=== PATIENT | male | born 1985 | race Caucasian/White ===

== ENCOUNTER 2021-12-27 09:17 | Emergency (ER) | payer OTHER ==
[2021-12-27 09:25] VITALS: BP 133/89
[2021-12-27 09:49] LABS: RAPID STREP SCREEN Negative (Negative)
--- NOTE | 2021-12-27 10:06 | ED Physician Documentation ---
PD HPI URI - Stated complaint Stated Complaint: THROAT PX - Chief complaint Chief Complaint: Heent - History obtained from History obtained from: Patient - History of Present Illness Timing - onset: How many days ago (04 01/2) Timing duration: Days (1-2) Timing details: Abrupt onset, Still present Associated symptoms: Fever (today/last night), Chills, Nasal congestion, Sinus pain, Sore throat (1-2 days), Dry cough (mild) Contributing factors: No: Sick contact, Unimmunized Similar symptoms before: No diagnosis (has had sinus congestion/pain with URIs in the past. He states Regi-D works very well for him.) Recently seen: Not recently seen Review of Systems Constitutional: reports: Fever, Chills, Myalgias, Fatigue Nose: reports: Congestion, Sinus pressure / pain Throat: reports: Sore throat Respiratory: reports: Cough (mild) GI: denies: Nausea, Vomiting, Diarrhea Skin: denies: Rash Musculoskeletal: denies: Neck pain Neurologic: denies: Altered mental status, Headache PD PAST MEDICAL HISTORY - Past Medical History Cardiovascular: None Respiratory: None Endocrine/Autoimmune: None HEENT: Other (seasonal allergies at times. ) - Present Medications Home Medications: Ambulatory Orders Medication Instructions Recorded Confirmed Fexofenadine/Pseudoephedrine 1 each PO BID #30 ea 12/27/21 [Regi-D 12 Hour Tablet] - Allergies Allergies/Adverse Reactions: Allergies Allergy/AdvReac Type Severity Reaction Status Date / Time No Known Drug Allergies Allergy Verified 12/27/21 09:25 PD ED PE NORMAL - Vitals Vital signs reviewed: Yes - General General: Alert and oriented X 3, No acute distress, Well developed/nourished - HEENT HEENT: Moist mucous membranes, Pharynx benign - Neck Neck: Supple, no meningeal sign, No adenopathy - Cardiac Cardiac: RRR (mild tachycardic), No murmur - Respiratory Respiratory: No respiratory distress, Clear bilaterally - Abdomen Abdomen: Soft, Non tender - Derm Derm: Normal color, Warm and dry, No rash - Neuro Neuro: Alert and oriented X 3, No motor deficit, Normal speech Results - Vitals Vitals: Vital Signs - 24 hr 12/27/21 09:21 Temperature 36.0 C L Heart Rate 103 H Respiratory 16 Rate Blood Pressure 133/89 H O2 Saturation 96 Oxygen O2 Source Room air - Labs Labs: Laboratory Tests 12/27/21 12/27/21 09:30 09:30 SARS-CoV-2 (PCR) DETECTED A Group A Strep Rapid Negative PD MEDICAL DECISION MAKING - ED course Complexity details: reviewed results (strep rapid neg. COVID positive. ), considered differential, d/w patient Departure - Departure Disposition: 01 Home, Self Care Clinical Impression: COVID Upper respiratory infection Qualifiers: URI type: unspecified URI Qualified Code(s): J06.9 - Acute upper respiratory infection, unspecified Condition: Stable Record reviewed to determine appropriate education?: Yes Instructions: ED Upper Resp Infec No Abx Tx Follow-Up: [facility] [Provider Group] Prescriptions: Fexofenadine/Pseudoephedrine [Regi-D 12 Hour Tablet] 1 each PO BID #30 ea Comments: Stay well-hydrated. Tylenol ibuprofen every 4-6 hours if needed for fevers or pains. Regi-D twice daily to help with congestion. I sent this prescription to the [email or web address]. Off work today and tomorrow due to acute illness. Will be longer if your COVID test is positive (commonly 5 days). You have a Covid test pending. You need to self quarantine until the result is done and negative. Do not leave your house. Do not get near anybody. The results should be done in 48 to 72 hours, but sometimes longer. We will call with a positive result, the fastest way to get a negative result for mally mathews though is to go to the hospital website at [email or web address], click on the my [email or web address] tab and sign up for the patient portal. If any friends or family get sick and would like to have a Covid test done, but do not have signs or symptoms that would necessitate being hospitalized, we encourage testing throughone of the local pharmacies or the Health Department. Call them to schedule an appointment. Forms: Activity restrictions Discharge Date/Time: 12/27/21 10:43
[2021-12-27] MEDS ORDERED: NIRMATRELVIR/RITONAVIR PREPACK PO STA (10:35)
== END 2021-12-27 10:43 | disposition home or self-care (01) ==
LOC: ED 09:17
DX: U07.1 COVID-19 (principal)
CPT/HCPCS: 87070; 87430; 87635; 99282; 99283; J3490

== ENCOUNTER 2022-05-10 11:37 | Emergency (ER) | payer OTHER ==
[2022-05-10 11:44] VITALS: BP 124/92
--- NOTE | 2022-05-10 11:57 | ED Physician Documentation ---
History of Present Illness - Stated complaint Stated Complaint: DRESSING - Additonal information Additional information: 37-year-old male presents emergency department for evaluation of dressing change. He was seen at [facility] yesterday and underwent incision and drainage of an abscess in his right posterior shoulder region. He was started on Bactrim. He states he has difficulty changing the dressing at home thus he comes here. History provided by patient. Reliable historian Review of Systems Constitutional: denies: Fever Skin: reports: Lesions PD PAST MEDICAL HISTORY - Past Medical History Cardiovascular: None Respiratory: None Endocrine/Autoimmune: None HEENT: Other (seasonal allergies at times. ) - Present Medications Home Medications: Ambulatory Orders Medication Instructions Recorded Confirmed Fexofenadine/Pseudoephedrine 1 each PO BID #30 ea 12/27/21 [Regi-D 12 Hour Tablet] - Allergies Allergies/Adverse Reactions: Allergies Allergy/AdvReac Type Severity Reaction Status Date / Time No Known Drug Allergies Allergy Verified 05/10/22 11:40 PD ED PE NORMAL - General General: Alert and oriented X 3, No acute distress - Derm Derm: Other (Abscess region in the right posterior shoulder with a 3 cm incision. The incision was Steri-Stripped together preventing drainage. The Steri-Strips were removed from the wound and approximately 5 mL of bloody drainage came out. There is no surrounding erythema. ) Results - Vitals Vitals: Vital Signs - 24 hr 05/10/22 11:41 Temperature 37.1 C Heart Rate 87 Respiratory 16 Rate Blood Pressure 124/92 H O2 Saturation 99 Oxygen O2 Source Room air PD Medical Decision Making - ED course Complexity details: re-evaluated patient, d/w patient ED course: Well-appearing 37-year-old active [employer] [place] [employer] male presents emergency department for evaluation of a dressing change to his right posterior shoulder region. He underwent incision and drainage yesterday at [facility] and was started on Bactrim. It appears that initially after the incision and drainage, the providers there Steri-Stripped the wound closed. I did remove the Steri-Strips and about 5 mL of frankly bloody but nonpurulent drainage came out. I then irrigated the wound with about 250 mL of saline. The wound was simply covered with gauze bandage. Patient tolerated this well. There was very minimal surrounding erythema. I discussed with the patient that these wounds should be allowed to drain. He should remain on the antibiotics. We discussed usual care of simple wound infection such as this as well as the emergent worrisome return precautions for failure of wound to heal or worsening infection. Departure - Departure Disposition: 01 Home, Self Care Clinical Impression: Encounter for change of dressing Condition: Stable Record reviewed to determine appropriate education?: Yes Comments: Dao please complete the course of antibiotics started yesterday. The wound itself looks good however it is important that it be allowed to co ntinue to drain. I encourage you to allow yourself to shower normally. You can allow the shower spray to hit and rinse through your wound. You can apply a thin layer of any antibiotic ointment such as bacitracin or triple antibiotic to the wound. This will gently heal over the next week or so. You simply need to apply a dry bandage over it but I do expect it to continue to drain for at least a few more days. Reasons to return to the emergency department would be the development of increased pain, significant swelling or redness around the wound, if you develop any fevers, or if you begin to have increased amount of purulent or frankly milky drainage.
== END 2022-05-10 12:00 | disposition home or self-care (01) ==
LOC: ED 11:37
DX: Z48.00 Encounter for change or removal of nonsurgical wound dressing (principal)
CPT/HCPCS: 99281; 99283